=== PATIENT | female | born 1950 | race Caucasian/White ===

== ENCOUNTER → 2017-02-13 | Outpatient (CLI) | payer OTHER ==
[~2017-02-13] MED LIST: ASPEC81 PO; FRRS300 PO; GLC500 PO; LISI20TA55 PO; MCR5 PO; METO25TA56 PO
[2017-02-13 12:44] LABS: ESTIMATED AVERAGE GLUCOSE 186 mg/dl; HA1C FLAG Normal (Normal)
[2017-02-13 12:55] LABS: ALT/SGPT 27 U/L (12-78); BLOOD UREA NITROGEN 26 mg/dl (7-18); BUN/CREATININE RATIO 21.8 (10-20); CARBON DIOXIDE 28 mmol/L (21-32); CHLORIDE 102 mmol/L (98-107); CHOLESTEROL 139 mg/dl (0-200); GLUCOSE 187 mg/dl (70-99); POTASSIUM 3.9 mmol/L (3.5-5.1); SODIUM 138 mmol/L (136-145)
[2017-02-13 12:58] LABS: ALB/GLOB RATIO 1.1 (0.9-2); ALKALINE PHOSPHATASE 59 U/L (45-117); AST/SGOT 18 U/L (15-37); CALCIUM 9.4 mg/dl (8.5-10.1); HDL CHOLESTEROL 47 mg/dl; LDL CHOLESTEROL CALCULATED 57 mg/dl; TRIGLYCERIDES 176 mg/dl (0-150); VERY LOW DENSITY LIPOPROT CALC 35 mg/dl
== END ==
LOC: C.LABPVFM 07:35
PROVIDERS: ATTEND Nurse Practitioner
DX: I10 Essential (primary) hypertension (principal); E11.65 Type 2 diabetes mellitus with hyperglycemia; E78.5 Hyperlipidemia, unspecified

== ENCOUNTER 2017-09-02 15:38 | Inpatient (IN) | payer OTHER ==
[~2017-09-02] VITALS: Ht 165.1 cm; Wt 77.0 kg
[2017-09-02] MEDS ORDERED: ONDANSETRON INJ 2 MG/ML 2 ML VIAL IV STA (16:20)
[2017-09-02] MEDS ORDERED: FENTANYL CITRATE INJ 50 MCG/1 ML 2 ML VIAL IV STA (16:20)
--- NOTE | 2017-09-02 16:29 | EMERGENCY ROOM VISIT NOTE ---
ED Visit Note First contact with patient: 15:51 CHIEF COMPLAINT: Right hip pain HISTORY OF PRESENT ILLNESS: This 67-year-old white female patient presents to the emergency department [facility] ambulance complaining of right hip pain after a fall while at work. 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 She states she was walking past the customer and is uncertain of the exact impact,, but recalls the customer trying to grab her arm. The patient landed on her right hip when she fell. She denies any head injury, did not hit her head, denies loss of consciousness, nausea, vomiting, or abdominal pain. She states she is only experiencing right hip pain, which is better with certain positioning. Any movement makes the pain worse, and she has not been able to bear weight since the incident occurred. The patient states the pain is radiating down the leg a little bit when she tries to move. At rest, she is experiencing a dull, achy pain, but the pain becomes very sharp with movement. The patient rates her pain 7/10. She has not taken any medication for pain. REVIEW OF SYSTEMS: A 10 system review of systems was performed with positives and pertinent negatives listed in the history of present illness. All other systems were reviewed and are negative. ALLERGIES: None MEDICATIONS: Metformin, Januvia, glyburide, aspirin PMH: Diabetes, hypertension SOCIAL HISTORY: The patient lives locally with family. She denies drug, alcohol , tobacco use. PHYSICAL EXAM: VITALS: Vitals are noted on the nurse's note and reviewed by myself. Vital signs stable. GENERAL: This is a 67-year-old white female, in no acute distress, nondiaphoretic, well-developed well-nourished. SKIN: The skin was without rashes, erythema, edema, or bruising. There is no tenting of the skin. Capillary reflex less than 2 seconds. HEAD: Normocephalic atraumatic. EARS: External auditory canals clear, tympanic membranes pearly [place] without erythema or effusion bilaterally. EYES: Pupils equal round and reactive to light and accommodation. Conjunctivae without injection, sclerae without icterus. Extraocular movements intact. NOSE: Patent, turbinates without inflammation or discharge. No sinus tenderness. MOUTH: Mucous membranes moist. Tonsils are not enlarged. Pharynx without erythema or exudate. Uvula midline. Airway patent. Tongue does not deviate. NECK: Supple without nuchal rigidity. No lymphadenopathy. No thyromegaly. Cervical spine is nontender. No JVD. HEART: Regular rate and rhythm without murmurs gallops or rubs. LUNGS: Clear to auscultation bilaterally without wheezes, rales or rhonchi. No dullness to percussion. No retractions or accessory muscle use. ABDOMEN: Positive bowel sounds x 4. Normal tympanic percussion. Soft, nontender, without masses or organomegaly. Reddy sign negative. No guarding or rebound tenderness. MUSCULOSKELETAL: There is severe tenderness on the anterior lateral right hip. No tenderness to palpation of the femur, except at the proximal end. The right leg is slightly shortened and externally rotated. The patient has significantly decreased range of motion in the right leg at the hip due to pain. No muscle atrophy, erythema, or edema noted. Full range of motion without joint tenderness in all extremities except as noted. No tenderness to palpation except as noted. The patient is unable to ambulate due to pain. Strength 5/5 throughout, but 4/5 in the right hip. NEURO: Patient was alert and oriented to person place and time. Normal sensation to light and sharp touch. Deep tendon reflexes 2+ throughout. No focal neurological deficits. RADIOLOGY: R PELVIS/UNILATERAL HIP 2-3VIEWS CLINICAL HISTORY: Right hip pain fracture. COMPARISON: None FINDINGS: There is an acute comminuted moderately displaced intertrochanteric fracture of the right femur. Lesser trochanter is displaced medially. Fracture extends to the subtrochanteric region. No additional fractures are identified on this exam. Sacroiliac joints and symphysis pubis are intact. IMPRESSION: Acute moderately displaced comminuted intertrochanteric fracture of the right femur. Electronically signed by: Arturo Parham M.D. 09/02/2017 5:52 PM Dictated Date/Time: 09/02/2017 5:50 PM CHEST ONE VIEW PORTABLE HISTORY: 67 years-old Female hip fracture acute fracture of the right hip status post fall COMPARISON: Chest radiograph 09/26/2008 TECHNIQUE: Supine AP view of the chest FINDINGS: Cardiac silhouette is mildly enlarged. No pneumothorax, pleural effusion, focal airspace consolidation or overt pulmonary edema. Linear subsegmental opacity of the right lateral midlung suggests atelectasis/scarring. Bones of the chest are grossly intact and appear mildly demineralized. Vascular calcifications are noted. IMPRESSION: No acute cardiopulmonary process. The above report was generated using voice recognition software. It may contain grammatical, syntax or spelling errors. Electronically signed by: Lucas Riley M.D. 09/02/2017 5:52 PM Dictated Date/Time: 09/02/2017 5:51 PM EMERGENCY DEPARTMENT COURSE: The patient was seen and evaluated as above. Her examination was consistent with a right hip fracture. An IV was initiated, and the patient was given an initial dose of 50 g of fentanyl and 4 mg Zofran IV. Labs were drawn. The patient did complain of the room spinning and stationary objects in motion shortly after receiving the dose of fentanyl. Her oxygen saturation did start to drop, and she was placed on oxygen via nasal cannula. X -ray did reveal a right hip fracture, so a Pride catheter was placed, labs ordered, and CXR ordered and completed. Dr. Alvarez did see and evaluate the patient at this time. I did contact [facility] hospitalist group regarding admission. I spoke with Dr. Andino, who does agree to evaluate the patient. Please see the hospitalist dictation regarding further management and care. I attest that I have personally reviewed the patient's current medication list. Blood Pressure Screening: Patient was found to have a slightly elevated blood pressure due to circumstances. I do not believe that the patient requires hypertension monitoring. DIFFERENTIAL DIAGNOSIS: Fracture, contusion, head injury, concussion, and others DIAGNOSIS: right hip fracture, Worker's Compensation injury Current/Historical Medications Scheduled Amlodipine (Norvasc), 10 MG PO DAILY Aspirin (Aspirin 81), 81 MG PO DAILY Clopidogrel (Plavix), 75 MG PO DAILY Diclofenac (Voltaren), 75 MG PO BID Glyburide (Glyburide), 5 MG PO BID Lisinopril/Hctz (Prinzide 20-25MG), 1 TAB PO DAILY Metformin Hcl (Fortamet), 1,000 MG PO BID Metoprolol Tartrate (Lopressor) (Lopressor), 150 MG PO TID Simvastatin (Zocor), 20 MG PO QPM Sitagliptin (Januvia), 100 MG PO HS Allergies Coded Allergies: No Known Allergies (Verified , 12/13/17) Vital Signs Date Time Temp Pulse Resp B/P (MAP) Pulse Ox O2 Delivery O2 Flow Rate FiO2 09/02/17 18:44 73 18 141/88 96 Nasal Cannula 2.0 09/02/17 17:19 94 Nasal Cannula 2.0 09/02/17 16:46 75 09/02/17 15:43 36.8 74 18 148/83 95 Room Air Laboratory Results 09/02/17 17:00 Red Blood Count 4.17, Mean Corpuscular Volume 92.3, Mean Corpuscular Hemoglobin 30.9, Mean Corpuscular Hemoglobin Concent 33.5, Mean Platelet Volume 9.7, Neutrophils (%) (Auto) 71.9, Lymphocytes (%) (Auto) 16.6, Monocytes (%) (Auto) 7.1, Eosinophils (%) (Auto) 3.9, Basophils (%) (Auto) 0.1, Neutrophils # (Auto) 5.57, Lymphocytes # (Auto) 1.29, Monocytes # (Auto) 0.55, Eosinophils # (Auto) 0.30, Basophils # (Auto) 0.01 09/02/17 17:00 Test 09/02/17 17:00 09/02/17 18:30 White Blood Count 7.75 K/uL (4.8-10.8) Red Blood Count 4.17 M/uL (4.2-5.4) Hemoglobin 12.9 g/dL (12.0-16.0) Hematocrit 38.5 % (37-47) Mean Corpuscular Volume 92.3 fL (80-100) Mean Corpuscular Hemoglobin 30.9 pg (25-34) Mean Corpuscular Hemoglobin Concent 33.5 g/dl (32-36) Platelet Count 199 K/uL (130-400) Mean Platelet Volume 9.7 fL (7.4-10.4) Neutrophils (%) (Auto) 71.9 % Lymphocytes (%) (Auto) 16.6 % Monocytes (%) (Auto) 7.1 % Eosinophils (%) (Auto) 3.9 % Basophils (%) (Auto) 0.1 % Neutrophils # (Auto) 5.57 K/uL (1.4-6.5) Lymphocytes # (Auto) 1.29 K/uL (1.2-3.4) Monocytes # (Auto) 0.55 K/uL (0.11-0.59) Eosinophils # (Auto) 0.30 K/uL (0-0.5) Basophils # (Auto) 0.01 K/uL (0-0.2) RDW Standard Deviation 44.9 fL (36.4-46.3) RDW Coefficient of Variation 13.4 % (11.5-14.5) Immature Granulocyte % (Auto) 0.4 % Immature Granulocyte # (Auto) 0.03 K/uL (0.00-0.02) Prothrombin Time 9.6 SECONDS (9.0-12.0) Prothromb Time International Ratio 0.9 (0.9-1.1) Activated Partial Thromboplast Time 23.5 SECONDS (21.0-31.0) Partial Thromboplastin Ratio 0.9 Anion Gap 5.0 mmol/L (3-11) Estimated GFR () 55.8 Estimated GFR (Non- 48.2 BUN/Creatinine Ratio 27.7 (10-20) Calcium Level 9.5 mg/dl (8.5-10.1) Medications Administered Medications (Trade) Dose Ordered Sig/Beverly Route Start Time Stop Time Status Last Admin Dose Admin Fentanyl Citrate (Fentanyl Inj) 50 mcg NOW STAT IV 09/02/17 16:20 09/02/17 16:21 DC 09/02/17 17:00 50 MCG Ondansetron HCl (Zofran Inj) 4 mg NOW STAT IV 09/02/17 16:20 09/02/17 16:21 DC 09/02/17 16:59 4 MG Departure Information Impression Primary Impression: Closed right hip fracture Additional Impression: Encounter related to worker's compensation claim Dispostion Admitted as an inpatient Condition FAIR Referrals Armaan Mo M.D. (PCP) Patient Instructions [facility] Problem Qualifiers Primary Impression: Closed right hip fracture Encounter type: initial encounter Qualified Codes: S72.001A - Fracture of unspecified part of neck of right femur, initial encounter for closed fracture
[2017-09-02] MEDS ORDERED: MCR5 PO (16:35)
[2017-09-02] MEDS ORDERED: SITA25TA PO (16:35)
[2017-09-02] MEDS ORDERED: ASPI-435 PO (16:35)
[2017-09-02] MEDS ORDERED: GLC500 PO (16:35)
[2017-09-02] MEDS ORDERED: [UNRECOGNIZED DRUG - CODE] PO (16:39)
[2017-09-02] MEDS ORDERED: CLOP1TAB15 PO (16:39)
[2017-09-02] MEDS ORDERED: AMLO-114 PO (16:39)
[2017-09-02] MEDS ORDERED: SIMV20TA2 PO (16:39)
[2017-09-02] MEDS ORDERED: SITA1TAB27 PO (16:39)
[2017-09-02] MEDS ORDERED: METO100T14 PO (16:39)
[2017-09-02] MEDS ORDERED: DICL-201 PO (16:40)
--- NOTE | 2017-09-02 17:53 | DIAGNOSTIC IMAGING REPORT ---
R PELVIS/UNILATERAL HIP 2-3VIEWS CLINICAL HISTORY: Right hip pain fracture. COMPARISON: None FINDINGS: There is an acute comminuted moderately displaced intertrochanteric fracture of the right femur. Lesser trochanter is displaced medially. Fracture extends to the subtrochanteric region. No additional fractures are identified on this exam. Sacroiliac joints and symphysis pubis are intact. IMPRESSION: Acute moderately displaced comminuted intertrochanteric fracture of the right femur. Electronically signed by: Arturo Parham M.D. 09/02/2017 5:52 PM Dictated Date/Time: 09/02/2017 5:50 PM
--- NOTE | 2017-09-02 17:54 | DIAGNOSTIC IMAGING REPORT ---
CHEST ONE VIEW PORTABLE HISTORY: 67 years-old Female hip fracture acute fracture of the right hip status post fall COMPARISON: Chest radiograph 09/26/2008 TECHNIQUE: Supine AP view of the chest FINDINGS: Cardiac silhouette is mildly enlarged. No pneumothorax, pleural effusion, focal airspace consolidation or overt pulmonary edema. Linear subsegmental opacity of the right lateral midlung suggests atelectasis/scarring. Bones of the chest are grossly intact and appear mildly demineralized. Vascular calcifications are noted. IMPRESSION: No acute cardiopulmonary process. The above report was generated using voice recognition software. It may contain grammatical, syntax or spelling errors. Electronically signed by: Lucas Riley M.D. 09/02/2017 5:52 PM Dictated Date/Time: 09/02/2017 5:51 PM
[2017-09-02 18:01] LABS: BASO % 0.1 %; BASO ABS # 0.01 K/uL (0-0.2); COMPLETE YES; EOS % 3.9 %; HEMATOCRIT 38.5 % (37-47); IG% 0.4 %; LYMPH % 16.6 %; LYMPH ABS # 1.29 K/uL (1.2-3.4); MEAN CELL VOLUME 92.3 fL (80-100); MEAN CORPUSCULAR HEMOGLOBIN 30.9 pg (25-34); MEAN CORPUSCULAR HGB CONC 33.5 g/dl (32-36); MEAN PLATELET VOLUME 9.7 fL (7.4-10.4); MONO % 7.1 %; NEUT % 71.9 %; PLATELET COUNT 199 K/uL (130-400); RED BLOOD COUNT 4.17 M/uL (4.2-5.4); WHITE BLOOD COUNT 7.75 K/uL (4.8-10.8)
[2017-09-02 18:05] LABS: INR 0.9 (0.9-1.1); PARTIAL THROMBOPLASTIN RATIO 0.9; PROTHROMBIN TIME (PATIENT) 9.6 SECONDS (9.0-12.0)
[2017-09-02 18:17] LABS: BLOOD UREA NITROGEN 32 mg/dl (7-18); BUN/CREATININE RATIO 27.7 (10-20); CALCIUM 9.5 mg/dl (8.5-10.1); CARBON DIOXIDE 26 mmol/L (21-32); CHLORIDE 102 mmol/L (98-107); CREATININE 1.17 mg/dl (0.60-1.20); GLUCOSE 153 mg/dl (70-99); POTASSIUM 4.2 mmol/L (3.5-5.1); SODIUM 133 mmol/L (136-145)
[2017-09-02 18:54] LABS: URINE APPEARANCE CLEAR (CLEAR); URINE BILIRUBIN NEG (NEG); URINE COLOR YELLOW; URINE NITRITE NEG (NEG); URINE SPECIFIC GRAVITY 1.014 (1.000-1.030); UROBILINOGEN NEG (NEG); ZZURINE CULT IF INDIC CATH NO
[2017-09-02 18:58] LABS: MANUAL MICROSCOPIC REQUIRED? NO; REVIEW REQ? NO
--- NOTE | 2017-09-02 19:03 | EMERGENCY ROOM VISIT NOTE ---
ED Visit Note First contact with patient: 15:51 I have personally evaluated this patient examined her and reviewed the pertinent labs and data. I have discussed the case with Gabby Moran, the physician certified medical assistant and agree with the plan. Please refer to the PA note. This patient suffered mechanical fall when she ran into somebody at work and fell. She injured her right hip . On my exam, it is shortened and very painful with any movement. She denies any other complaints. Her x-ray does show an intertrochanteric hip fracture and she will need to be admitted for orthopedic consultation and operative repair. We have consulted the [facility] hospitalist group as she is followed by the [facility].
--- NOTE | 2017-09-02 19:11 | History and Physical ---
History & Physical Date & Time of Service: Sep 02, 2017 at 19:10 Chief Complaint: Fall, R Hip Pain Primary Care Physician: Armaan oM M.D. History of Present Illness Source: patient 67 y/o F c/o R hip pain. Pt works at [employer] and was at work earlier today when a customer rain into her causing her to fall. She landed on her R side and started having pain immediately. She did not hit her head. She cannot bear weight on the R now. Prior to this, she had no issues with walking. She walks daily for her job at [employer] and never has any issues with that. She can do several flights of stairs without becoming SOB. Pt is frustrated at present, but otherwise no new issues. She has minimal pain if her R LE is not being manipulated. Pt denies fever, SOB, chest pain, abd pain, n/v/c/d, LE swelling, lightheadedness, LOC. Pt has a hx of CVA in 2009. She takes daily aspirin/plavix. Her last dosing was Thursday. Past Medical/Surgical History DM HTN CVA 2009 Family History Adopted Social History Smoking Status: Never Smoker Alcohol Use: none Drug Use: none Housing status: other Immunizations History of Influenza Vaccine: Unknown History of Tetanus Vaccine?: Unknown History of Pneumococcal: Yes Pneumococcal Date: Apr 27, 2010 History of Hepatitis B Vaccine: Unknown Allergies Coded Allergies: No Known Allergies (Verified , 09/02/17) Home Medications Scheduled Amlodipine (Norvasc), 10 MG PO DAILY Aspirin (Aspirin 81), 81 MG PO DAILY Clopidogrel (Plavix), 75 MG PO DAILY Diclofenac (Voltaren), 75 MG PO BID Glyburide (Glyburide), 5 MG PO BID Lisinopril/Hctz (Prinzide 20-25MG), 1 TAB PO DAILY Metformin Hcl (Fortamet), 1,000 MG PO BID Metoprolol Tartrate (Lopressor) (Lopressor), 150 MG PO TID Simvastatin (Zocor), 20 MG PO QPM Sitagliptin (Januvia), 100 MG PO HS Review of Systems Pertinent positives and negatives reviewed in HPI--all others negative Physical Exam Vital Signs Date Time Temp Pulse Resp B/P (MAP) Pulse Ox O2 Delivery O2 Flow Rate FiO2 09/02/17 18:44 73 18 141/88 96 Nasal Cannula 2.0 09/02/17 17:19 94 Nasal Cannula 2.0 09/02/17 16:46 75 09/02/17 15:43 36.8 74 18 148/83 95 Room Air General Appearance: WD/WN, no apparent distress Head: normocephalic, atraumatic Eyes: EOMI, sclerae normal Respiratory/Chest: normal breath sounds, no respiratory distress Cardiovascular: regular rate, rhythm, no edema Abdomen/GI: non tender, soft Extremities/Musculoskelatal: no calf tenderness, no pedal edema Neurologic/Psych: alert, normal mood/affect, oriented x 3 Skin: normal color, warm/dry Diagnostics Laboratory Results Results Past 24 Hours Test 09/02/17 17:00 09/02/17 18:30 Range/Units White Blood Count 7.75 4.8-10.8 K/uL Red Blood Count 4.17 4.2-5.4 M/uL Hemoglobin 12.9 12.0-16.0 g/dL Hematocrit 38.5 37-47 % Mean Corpuscular Volume 92.3 80-100 fL Mean Corpuscular Hemoglobin 30.9 25-34 pg Mean Corpuscular Hemoglobin Concent 33.5 32-36 g/dl Platelet Count 199 130-400 K/uL Mean Platelet Volume 9.7 7.4-10.4 fL Neutrophils (%) (Auto) 71.9 % Lymphocytes (%) (Auto) 16.6 % Monocytes (%) (Auto) 7.1 % Eosinophils (%) (Auto) 3.9 % Basophils (%) (Auto) 0.1 % Neutrophils # (Auto) 5.57 1.4-6.5 K/uL Lymphocytes # (Auto) 1.29 1.2-3.4 K/uL Monocytes # (Auto) 0.55 0.11-0.59 K/uL Eosinophils # (Auto) 0.30 0-0.5 K/uL Basophils # (Auto) 0.01 0-0.2 K/uL RDW Standard Deviation 44.9 36.4-46.3 fL RDW Coefficient of Variation 13.4 11.5-14.5 % Immature Granulocyte % (Auto) 0.4 % Immature Granulocyte # (Auto) 0.03 0.00-0.02 K/uL Prothrombin Time 9.6 9.0-12.0 SECONDS Prothromb Time International Ratio 0.9 0.9-1.1 Activated Partial Thromboplast Time 23.5 21.0-31.0 SECONDS Partial Thromboplastin Ratio 0.9 Sodium Level 133 136-145 mmol/L Potassium Level 4.2 3.5-5.1 mmol/L Chloride Level 102 98-107 mmol/L Carbon Dioxide Level 26 21-32 mmol/L Anion Gap 5.0 3-11 mmol/L Blood Urea Nitrogen 32 7-18 mg/dl Creatinine 1.17 0.60-1.20 mg/dl Estimated GFR () 55.8 Estimated GFR (Non- 48.2 BUN/Creatinine Ratio 27.7 10-20 Random Glucose 153 70-99 mg/dl Calcium Level 9.5 8.5-10.1 mg/dl Urine Color YELLOW Urine Appearance CLEAR CLEAR Urine pH 8.0 4.5-7.5 Urine Specific [place] 1.014 1.000-1.030 Urine Protein NEG NEG Urine Glucose (UA) NEG NEG Urine Ketones NEG NEG Urine Occult Blood NEG NEG Urine Nitrite NEG NEG Urine Bilirubin NEG NEG Urine Urobilinogen NEG NEG Urine Leukocyte Esterase NEG NEG Diagnostic Radiology CXR neg LE XR show R hip fracture Normal EKG Impression Assessment and Plan 67 y/o F who was admitted on 09/02 with R hip fracture s/p mechanical fall at work. R hip fracture: s/p mechanical fall As per ortho, c/s pending NPO after midnight PT/OT HTN: stable, continue home meds DM: on PO generally, will hold and use SSI until taking reliable PO post-op A1c pending CVA: hx in 2009 without deficits On asp/plavix, last dose was PM 12 Will hold Other: Full code Reg diet today, NPO after midnight DVT proph as per ortho Level of Care Med/Surg Resuscitation Status FULL RESUSCITATION VTE Prophylaxis VTE Risk Assessment Done? Y/N: Yes Risk Level: Low
[2017-09-02] MEDS ORDERED: ONDANSETRON INJ 2 MG/ML 2 ML VIAL IV PRN (19:15)
[2017-09-02] MEDS ORDERED: MAGNESIUM HYDROXIDE SUSP 30 ML UDC PO PRN (19:15)
[2017-09-02] MEDS ORDERED: GLUCOSE 40% GEL 15 GM TUBE PO PRN (19:15)
[2017-09-02] MEDS ORDERED: GLUCAGON FOR INJ 1 MG VIAL SQ PRN (19:15)
[2017-09-02] MEDS ORDERED: DEXTROSE 50% 50 ML SYR IV PRN (19:15)
[2017-09-02] MEDS ORDERED: MoRPHine SULFATE 2 MG/ML CARP IM PRN (19:15)
[2017-09-02] MEDS ORDERED: GLUCOSE 10 TABS/TUBE PO PRN (19:15)
[2017-09-02 20:00] VITALS: BP 147/87; PULSE 70; TEMP 36.8; O2SAT 99
[2017-09-02] MEDS: INSULIN ASPART 100 UNITS/ML 3 ML PEN SC SCH (21:47)
[2017-09-02 21:50] VITALS: BP 157/95; PULSE 67
[2017-09-02] MEDS: DICLOFENAC SOD EC 75 MG TABCR PO SCH (21:51)
[2017-09-02] MEDS: METOPROLOL TARTRATE 50 MG TAB PO SCH (21:51)
[2017-09-02] MEDS: SIMVASTATIN 20 MG TAB PO SCH (21:51)
[2017-09-02] MEDS ORDERED: MoRPHine SULFATE 2 MG/ML CARP IV PRN (22:45)
[2017-09-02 23:10] VITALS: BP 144/80; PULSE 66; TEMP 36.6; O2SAT 98
[2017-09-03] VITALS (7 sets, daily range): BP systolic 108–150; BP diastolic 70–79; PULSE 57–65; TEMP 36.4–37; O2SAT 98; Ht 165.1 cm; Wt 77.0 kg
[2017-09-03 07:34] LABS: ESTIMATED AVERAGE GLUCOSE 183 mg/dl; HA1C FLAG Normal (Normal)
[2017-09-03] MEDS: METOPROLOL TARTRATE 50 MG TAB PO SCH ×3 (07:57→21:08)
[2017-09-03] MEDS: DICLOFENAC SOD EC 75 MG TABCR PO SCH ×2 (07:57→21:08)
[2017-09-03] MEDS: LISINOPRIL/HCTZ 20/25MG TAB PO SCH (07:57)
[2017-09-03] MEDS: AMLODIPINE BESYLATE 5 MG TAB PO SCH (07:57)
--- NOTE | 2017-09-03 08:39 | ORTHOPEDIC CONSULTATION ---
DATE OF CONSULTATION: 09/03/2017 CHIEF COMPLAINT: Right hip pain. 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 Apparently she ran into the person and said that they were bigger than she was. She had no preexisting hip pain. She had acute onset of pain and could not walk afterwards. Brought to the Emergency Room where x-rays revealed a hip fracture and she is admitted by the medicine service. No other injuries. Denies any head injury, no loss of consciousness, no neck pain. No history of hip problems in the past. PAST MEDICAL HISTORY: 1. Significant for diabetes, followed by Dr. Mo. 2. History of a CVA on aspirin and Plavix. 3. Hypertension. The reminder of the past medical history is per the admission H&P. OBJECTIVE: VITAL SIGNS: Temperature is 36.9. Vital signs stable. GENERAL: Reveals a pleasant elderly female. She is lying in bed, looks reasonably comfortable. Really not have much pain now. EXTREMITIES: General musculoskeletal exam reveals painless range of motion of her cervical, thoracic and lumbar spine. She has full painless range of motion of both arms, elbows, shoulders and wrists and left lower extremities. Examination of the right leg reveals some mild swelling. It is significantly shortened and rotated externally. She can dorsiflex and plantarflex her foot appropriately. She has pain with any type of hip motion at all. She is neurologically intact. X-RAYS: X-rays of the right hip reviewed. It shows a comminuted intertrochanteric hip fracture of the right hip. No significant hip arthritis. No underlying signs of bone disease. ASSESSMENT: A 67-year-old white female diabetic with right displaced intertrochanteric hip fracture with subtrochanteric extension. PLAN: She has been admitted by the hospitalist service. She looks medically optimized. We will keep her n.p.o. and try and fix this hip later on. Plan will be an IM nail. The risks and benefits of this procedure were explained to the patient including but not limited to DVT, PE, , infection, neurological injury, vascular injury, bleeding problem, pain, nonunion, malunion, need for further surgery in the future, symptomatic hardware, need for blood transfusion, etc. The patient understands and desires to proceed. Informed consent was obtained. In the meantime, we will plan on DVT prophylaxis including thigh-high TEDs and SCDs. We will hold her Plavix but she will likely need a general anesthetic.
[2017-09-03] MEDS: INSULIN ASPART 100 UNITS/ML 3 ML PEN SC SCH ×4 (08:59→21:10)
--- NOTE | 2017-09-03 14:27 | Progress Note ---
Subjective Date of Service: Sep 03, 2017. Subjective Pt evaluation today including: conversation w/ patient, physical exam, chart review, lab review, review of studies, review of inpatient medication list Reports pain at hip only when moving Resting comfortably in bed Currently NPO Problem List Medical Problems: (1) Closed right hip fracture Status: Acute (2) Encounter related to worker's compensation claim Status: Acute Review of Systems Constitutional: No fever, No chills, No sweats, No weight loss ENT: No hearing loss, No unusual epistaxis, No nasal symptoms, No sore throat Respiratory: No cough, No sputum, No wheezing, No shortness of breath Cardiac: No chest pain, No orthopnea, No PND, No edema Abdomen: No pain, No nausea, No vomiting, No diarrhea, No constipation Musculoskeletal: + joint pain (hip pain), No muscle pain, No swelling, No calf pain Female : No dysuria, No urinary frequency, No hematuria, No incontinence Neurologic: No memory loss, No paralysis, No weakness, No numbness/tingling Psychiatric: No depression symptoms, No anhedonism, No anxiety, No insomnia Endo: No fatigue, No excessive thirst Skin: No rash, No itch Objective Vital Signs Date Time Temp Pulse Resp B/P (MAP) Pulse Ox O2 Delivery O2 Flow Rate FiO2 09/03/17 08:10 Nasal Cannula 2.0 09/03/17 07:25 36.9 63 16 150/79 (102) 98 Room Air 09/02/17 23:45 Nasal Cannula 2.0 09/02/17 23:10 36.6 66 16 144/80 (101) 98 Nasal Cannula 09/02/17 21:50 67 157/95 (115) 09/02/17 20:00 36.8 70 16 147/87 99 Nasal Cannula 2.0 09/02/17 19:19 74 16 141/88 96 09/02/17 18:44 73 18 141/88 96 Nasal Cannula 2.0 09/02/17 17:19 94 Nasal Cannula 2.0 09/02/17 16:46 75 09/02/17 15:43 36.8 74 18 148/83 95 Room Air Physical Exam General Appearance: WD/WN, no apparent distress Eyes: normal inspection, PERRL, EOMI, sclerae normal Neck: supple, no adenopathy, thyroid normal, no JVD Respiratory/Chest: chest non-tender, lungs clear, normal breath sounds, no respiratory distress Cardiovascular: regular rate, rhythm, no edema, no gallop, no JVD Abdomen: normal bowel sounds, non tender, soft, no organomegaly Extremities: normal range of motion, non-tender, normal inspection, no pedal edema Neurologic/Psychiatric: no motor/sensory deficits, alert, normal mood/affect, oriented x 3 Skin: normal color, warm/dry, no rash Lymphatic: no adenopathy Laboratory Results Last 24 Hours Test 09/02/17 17:00 09/02/17 18:30 09/02/17 20:58 09/03/17 06:22 White Blood Count 7.75 K/uL Red Blood Count 4.17 M/uL Hemoglobin 12.9 g/dL Hematocrit 38.5 % Mean Corpuscular Volume 92.3 fL Mean Corpuscular Hemoglobin 30.9 pg Mean Corpuscular Hemoglobin Concent 33.5 g/dl Platelet Count 199 K/uL Mean Platelet Volume 9.7 fL Neutrophils (%) (Auto) 71.9 % Lymphocytes (%) (Auto) 16.6 % Monocytes (%) (Auto) 7.1 % Eosinophils (%) (Auto) 3.9 % Basophils (%) (Auto) 0.1 % Neutrophils # (Auto) 5.57 K/uL Lymphocytes # (Auto) 1.29 K/uL Monocytes # (Auto) 0.55 K/uL Eosinophils # (Auto) 0.30 K/uL Basophils # (Auto) 0.01 K/uL RDW Standard Deviation 44.9 fL RDW Coefficient of Variation 13.4 % Immature Granulocyte % (Auto) 0.4 % Immature Granulocyte # (Auto) 0.03 K/uL Prothrombin Time 9.6 SECONDS Prothromb Time International Ratio 0.9 Activated Partial Thromboplast Time 23.5 SECONDS Partial Thromboplastin Ratio 0.9 Sodium Level 133 mmol/L Potassium Level 4.2 mmol/L Chloride Level 102 mmol/L Carbon Dioxide Level 26 mmol/L Anion Gap 5.0 mmol/L Blood Urea Nitrogen 32 mg/dl Creatinine 1.17 mg/dl Estimated GFR () 55.8 Estimated GFR (Non- 48.2 BUN/Creatinine Ratio 27.7 Random Glucose 153 mg/dl Calcium Level 9.5 mg/dl Urine Color YELLOW Urine Appearance CLEAR Urine pH 8.0 Urine Specific [place] 1.014 Urine Protein NEG Urine Glucose (UA) NEG Urine Ketones NEG Urine Occult Blood NEG Urine Nitrite NEG Urine Bilirubin NEG Urine Urobilinogen NEG Urine Leukocyte Esterase NEG Bedside Glucose 164 mg/dl Estimated Average Glucose 183 mg/dl Hemoglobin A1c 8.0 % Test 09/03/17 12:08 Bedside Glucose 153 mg/dl Assessment and Plan 67 y/o F who was admitted on 09/02 with R hip fracture s/p mechanical fall at work. R hip fracture: s/p mechanical fall Keep NPO, Per ortho, repair likely by IM nail later today Cont to hold plavix HTN: stable, continue home meds DM: on PO generally, will hold and use SSI until taking reliable PO post-op A1c 8 CVA: hx in 2009 without deficits On asp/plavix, last dose was PM 12 Will hold Other: Full code
[2017-09-03] MEDS ORDERED: BUPIVACAINE/EPINEPHRINE 0.5% MPF 1:200,000 30 ML VIAL ONE (15:30)
[2017-09-03] MEDS ORDERED: CEFAZOLIN SOD 2000MG/10 ML IV PUSH IV ONE (15:44)
[2017-09-03] MEDS ORDERED: NURSING VERBAL MED ORDER ONE ×2 (15:45→23:00)
[2017-09-03] MEDS ORDERED: NEOSTIGMINE METHYLSULFATE 5 MG/5 ML SYR ONE (16:57)
[2017-09-03] MEDS ORDERED: DEXAMETHASONE SOD INJ 4 MG/ML VIAL ONE (16:57)
[2017-09-03] MEDS ORDERED: ONDANSETRON INJ 2 MG/ML 2 ML VIAL ONE (16:57)
[2017-09-03] MEDS ORDERED: GLYCOPYRROLATE INJ 0.2 MG/ML VIAL ONE ×2 (16:57→17:19)
[2017-09-03] MEDS ORDERED: FENTANYL CITRATE INJ 50 MCG/1 ML 2 ML VIAL ONE (16:57)
[2017-09-03] MEDS ORDERED: LIDOCAINE HCL 2% 2 ML VIAL (20MG/ML) ONE (16:57)
[2017-09-03] MEDS ORDERED: PROPOFOL IV EMULSION 10 MG/ML 20 ML VIAL IV ONE (16:57)
[2017-09-03] MEDS ORDERED: EpHEDrine SULFATE 50MG/5ML SYR ONE (17:19)
[2017-09-03] MEDS ORDERED: FLUMAZENIL 0.1 MG/1 ML 10 ML VIAL IV PRN (18:00)
[2017-09-03] MEDS ORDERED: PHENYLEPHRINE 100MCG/ML 5ML SYR IV PRN (18:00)
[2017-09-03] MEDS ORDERED: HYDROmorphone INJ 2 MG/ML SYR/VIAL IV PRN (18:00)
[2017-09-03] MEDS ORDERED: FENTANYL CITRATE INJ 50 MCG/1 ML 2 ML VIAL IV PRN (18:00)
[2017-09-03] MEDS ORDERED: ONDANSETRON INJ 2 MG/ML 2 ML VIAL IV PRN (18:00)
[2017-09-03] MEDS ORDERED: EpHEDrine SULFATE INJ 50 MG/ML AMP IV PRN (18:00)
[2017-09-03] MEDS ORDERED: MEPERIDINE HCL 25 MG/ML CARP IV PRN (18:00)
[2017-09-03] MEDS ORDERED: ATROPINE SULFATE 0.1 MG/ML 5ML SYR IV PRN (18:00)
[2017-09-03] MEDS ORDERED: LABETALOL HCL IV 5 MG/ML 20ML IV PRN (18:00)
[2017-09-03] MEDS ORDERED: NALOXONE HCL 0.4 MG/1 ML VIAL/CARP IV PRN (18:00)
--- NOTE | 2017-09-03 18:19 | DIAGNOSTIC IMAGING REPORT ---
R HIP OR FILMS HISTORY: 67 years-old Female RT TROCH NAIL post placement of a right-sided intertrochanteric nail. Acute right hip intertrochanteric fracture COMPARISON: Pelvis and right hip radiographs 09/02/2017 TECHNIQUE: 4 spot fluoroscopic images of the right hip were obtained utilizing 84.5 seconds fluoroscopy time. FINDINGS: There has been interval placement of an intratrochanteric nail with medullary helga of the right femur fixating the previously noted intertrochanteric fracture. There is satisfactory alignment. Minimal separation of the fracture fragments again noted. Distal intramedullary helga is fixated by cannulated screw of the distal femoral shaft which appears intact. Expected postsurgical soft tissue swelling and deep tissue air. Peripheral vascular disease. IMPRESSION: Status post placement of an intratrochanteric nail fixating an acute intertrochanteric fracture with satisfactory alignment. The above report was generated using voice recognition software. It may contain grammatical, syntax or spelling errors. Electronically signed by: Lucas Riley M.D. 09/03/2017 6:18 PM Dictated Date/Time: 09/03/2017 6:14 PM
--- NOTE | 2017-09-03 18:24 | [facility] Post Operative Brief Note ---
Immediate Operative Summary Operative Date Sep 03, 2017. Pre-Operative Diagnosis Right Intertrochanteric hip fracture Post-Operative Diagnosis Right Intertrochanteric hip fracture Procedure(s) Performed Intramedullary Froilan Right Intertrochanteric fracture Surgeon Dr. Love Spa Coordinator Surgeon(s) Edmond Tam Estimated Blood Loss 100 ML Findings Right Intertrochanteric Hip Fracture Fluids (cc crystalloids) 700 cc Specimens none per surgeon Drains None Anesthesia General Complication(s) None Disposition Recovery Room / PACU
[2017-09-03] MEDS ORDERED: BISACODYL 10 MG SUPP PR PRN (18:30)
[2017-09-03] MEDS ORDERED: MAGNESIUM HYDROXIDE SUSP 30 ML UDC PO PRN (18:30)
--- NOTE | 2017-09-03 18:59 | Anesthesiology Progress Note ---
Anesthesia Post Op Note Date & Time Sep 03, 2017 at 18:59 Vital Signs Pain Intensity: 0 Vital Signs Past 12 Hours Date Time Temp Pulse Resp B/P (MAP) Pulse Ox O2 Delivery O2 Flow Rate FiO2 09/03/17 18:55 53 16 131/74 98 Nasal Cannula 2 09/03/17 18:45 58 18 121/71 99 Oxymask 10 09/03/17 18:35 64 26 110/91 99 Oxymask 10 09/03/17 18:26 36.0 66 16 128/90 100 Oxymask 10 09/03/17 15:33 37 65 16 154/87 (109) 95 Room Air 09/03/17 08:10 Nasal Cannula 2.0 09/03/17 07:25 36.9 63 16 150/79 (102) 98 Room Air Notes Mental Status: alert / awake / arousable, participated in evaluation Pt Amnestic to Procedure: Yes Nausea / Vomiting: adequately controlled Pain: adequately controlled Airway Patency, RR, SpO2: stable & adequate BP & HR: stable & adequate Hydration State: stable & adequate Anesthetic Complications: no major complications apparent
--- NOTE | 2017-09-03 19:25 | OPERATIVE REPORT ---
DATE OF OPERATION: 09/03/2017 SURGEON: Francisco Love MD CHUCKING MACHINE SET UP OPERATOR TOOL: DESTINI Sierra. PREOPERATIVE DIAGNOSIS: Right displaced intertrochanteric hip fracture with subtrochanteric extension. POSTOPERATIVE DIAGNOSIS: Same. PROCEDURE PERFORMED: Right cephalomedullary nailing of right displaced intertrochanteric hip fracture. COMPLICATIONS: None. ESTIMATED BLOOD LOSS: 100 mL. FLUID REPLACEMENT: 1700 mL crystalloid fluid replacement. ANESTHESIA: General. SPECIMENS: None. 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 She apparently had a collision with a customer accidentally. She says she kind of lost the rand. She had acute onset of hip pain. She had no preexisting hip problems. She was brought to Emergency Room and x-rays showed right intertrochanteric hip fracture. The patient was admitted to the hospital by the medicine service and medically optimized and indicated for surgical fixation. OPERATIVE IMPLANTS: Operative implants consisted of: 1. A Synthes right 360 mm x 11 mm long trochanteric nail. 2. A 90 mm helical blade. 3. A 5 x 45 mm distal interlocking screw. OPERATIVE PROCEDURE: The patient taken to the operating room, identified and placed on the operating table in supine position. All contact areas were appropriately padded. IV antibiotics were provided by anesthesia team. A general anesthetic was implemented by the anesthesia team as this patient has been on Plavix. The patient was then placed on the fracture table. The right leg was placed in boot traction and the left leg was placed in a well leg cardona. I then applied some longitudinal traction to the leg and internally rotated the foot slightly. X-ray was brought in. The fracture was comminuted but anatomically aligned. The right hip and leg area were then prepped and draped in the usual sterile fashion. A curvilinear incision was made just proximal to the tip of the greater trochanter. Sharp dissection was carried out through the subcutaneous tissue down to the level of gluteal fascia. The gluteal fascia was incised longitudinally in line with the skin incision. A guidewire was then placed just lateral to the tip of the trochanter and in line with the IM canal in both the AP and lateral planes. This was overdrilled with a 17 mm reamer. This guidewire was removed and exchanged for a ball tipped guidewire. A ball tipped guidewire was placed down the IM canal. The nail length was measured and a 360 mm nail was selected. A 12.5 mm reamer was then placed over the guidewire and the canal was reamed. A right 360 mm x 11 mm long trochanteric nail was selected. It was advanced down the IM canal and tacked into place. The lateral aiming arm was attached. A stab incision was made and the lateral aiming arm was advanced to the lateral aspect of the femur. A guidewire was placed in the area of the center of the femoral head and neck in both the AP and lateral planes. Once this was verified, this was measured and a 90 mm helical blade was selected. The cortical drill was used to breach the cortex and a triple reamer was set at 90. The guidewire was overreamed with a 90 mm triple reamer. A 90 mm helical blade was then selected. This was then impacted in position. This did distract the fracture site slightly, so I did tighten the set screw proximally and then compressed the fracture. The proximal aiming arm was then removed and some proximal images were obtained. Hardware was appropriately positioned and anatomically aligned. Attention was then drawn toward distal interlocking. Distal interlocking was performed using the perfect paimiut technique. X-rays were brought in. A perfect paimiut lateral x-ray was obtained of the distal interlocking hole. A stab incision was then made and the 4.0 mm drill bit was used to create the hole. The length of the screw was measured and a 44 mm screw was selected and placed through the distal portion of the interlocking hole to allow some compression of the fracture. This position was verified fluoroscopically and attention was then drawn toward closing. The wound was irrigated with copious amounts of normal saline. I did inject locally with 30 mL of 0.5% Marcaine with epinephrine. The gluteal fascia was then closed with #1 Vicryl suture in a [id number] fashion. The subcutaneous tissues were then closed with 2 layers with a deep layer of #1 Vicryl suture and the subcutaneous tissues with 2-0 Dexon suture in a buried interrupted fashion. The skin of all the incisions were then closed with skin jonatan. The leg was then cleaned and dried and a sterile dressing composed of Xeroform, 4 x 4's, ABD pad and foam tape was applied. The patient was then taken off the fracture table. She was brought out of general anesthesia and transferred to the recovery room in stable condition. The patient tolerated the procedure well with no complications. All needle and sponge counts were correct at the end of the operation. I attest to the content of the Intraoperative Record and any orders documented therein. Any exception s are noted below.
[2017-09-03] MEDS: SIMVASTATIN 20 MG TAB PO SCH (21:08)
[2017-09-03] MEDS: SITAGLIPTIN 100 MG TAB PO SCH (21:11)
[2017-09-03] MEDS: DOCUSATE SODIUM/SENNA 50/8.6MG TAB PO SCH (21:11)
[2017-09-03] MEDS ORDERED: LACTATED RINGER'S 1000ML 1,000 ML IV SCH (23:00)
[2017-09-04] VITALS (8 sets, daily range): BP systolic 102–127; BP diastolic 59–72; PULSE 57–64; TEMP 36.5–37; O2SAT 91–94
[2017-09-04] MEDS ORDERED: CEFAZOLIN IV 1,000 MG in DEXTROSE 5% 50ML 50 ML IV SCH ×2
[2017-09-04] MEDS: CEFAZOLIN IV 1,000 MG in SYRINGE 0 ML IV SCH ×2 (00:37→07:37)
[2017-09-04 07:08] LABS: HEMATOCRIT 27.2 % (37-47); MEAN CORPUSCULAR HEMOGLOBIN 30.1 pg (25-34); MEAN CORPUSCULAR HGB CONC 33.1 g/dl (32-36); MEAN PLATELET VOLUME 9.9 fL (7.4-10.4); PLATELET COUNT 160 K/uL (130-400); RED BLOOD COUNT 2.99 M/uL (4.2-5.4); WHITE BLOOD COUNT 11.67 K/uL (4.8-10.8)
[2017-09-04 07:19] LABS: CALCIUM 8.2 mg/dl (8.5-10.1); CREATININE 1.01 mg/dl (0.60-1.20)
[2017-09-04] MEDS: DICLOFENAC SOD EC 75 MG TABCR PO SCH ×2 (09:00→21:26)
[2017-09-04] MEDS: ASPIRIN 81 MG ECTAB PO SCH (09:02)
[2017-09-04] MEDS: CLOPIDOGREL BISULFATE 75 MG TAB PO SCH (09:03)
[2017-09-04] MEDS: AMLODIPINE BESYLATE 5 MG TAB PO SCH (09:05)
[2017-09-04] MEDS: METOPROLOL TARTRATE 50 MG TAB PO SCH ×3 (09:07→21:26)
[2017-09-04] MEDS: LISINOPRIL/HCTZ 20/25MG TAB PO SCH (09:07)
[2017-09-04] MEDS: INSULIN ASPART 100 UNITS/ML 3 ML PEN SC SCH ×4 (09:13→21:27)
--- NOTE | 2017-09-04 09:14 | PROGRESS NOTE ---
DATE: 09/04/2017 SUBJECTIVE: A 67-year-old white female postop day 1 from IM nailing of a right comminuted intertrochanteric fracture. She is doing well. In bed, she is not really having any significant pain. No chest pain or shortness of breath. Not feeling dizzy or lightheaded. No other complaints. OBJECTIVE: VITAL SIGNS: Temperature 36.8. Vital signs stable. GENERAL: A pleasant, middle-aged female. Lying in bed, looks pretty comfortable. EXTREMITIES: Examination of the right hip and leg reveals the leg to be well aligned. Dressing is clean, dry and intact. She can dorsiflex and plantarflex her foot appropriately. Thigh is soft and supple. LABORATORY DATA: Hemoglobin 9.0. Hematocrit 27.2. White cell count 11.67. Electrolytes are stable. ASSESSMENT: A 67-year-old white female, diabetic, postop day 1 from intramedullary nailing of the right intertrochanteric fracture. She is doing pretty well. Pain is controlled. She is neurologically intact. PLAN: 1. DVT prophylaxis including thigh-high TEDs, SCDs, and back on her Plavix 24 hours postop. 2. PT/OT. She can weightbear as tolerated, right lower extremity. 3. Pain control, doing pretty well with current pain regimen. 4. Medical management as per the medicine service. 5. Disposition: She really wants to go home. I am not sure what kind of help she has at home. Will get [employer] social media and crm involved. She might benefit from a rehab stay.
[2017-09-04] MEDS: ACETAMINOPHEN 325 MG TAB PO PRN (10:40)
--- NOTE | 2017-09-04 13:27 | Progress Note ---
Subjective Date of Service: Sep 04, 2017. Subjective Pt evaluation today including: conversation w/ patient, physical exam, chart review, lab review, review of studies, review of inpatient medication list Depressed effect Reports pain at surgical site but controlled Pt not very verbal on discussion No other concerns expressed Problem List Medical Problems: (1) Closed right hip fracture Status: Acute (2) Encounter related to worker's compensation claim Status: Acute Review of Systems Constitutional: No fever, No chills, No sweats, No weakness Eyes: No worsening of vision, No eye pain, No redness, No discharge Respiratory: No cough, No sputum, No wheezing, No shortness of breath, No dyspnea on exertion Cardiac: No chest pain, No orthopnea, No PND, No edema Abdomen: No pain, No nausea, No vomiting, No diarrhea Musculoskeletal: + joint pain, No muscle pain, No swelling, No calf pain Female : No dysuria, No urinary frequency, No hematuria, No incontinence Neurologic: No memory loss, No paralysis, No weakness, No numbness/tingling Psychiatric: + depression symptoms, + anxiety, No anhedonism, No insomnia Heme: No abnormal bleeding/bruising, No clotting problems Endo: No fatigue, No excessive thirst Skin: No rash, No itch Objective Vital Signs Date Time Temp Pulse Resp B/P (MAP) Pulse Ox O2 Delivery O2 Flow Rate FiO2 09/04/17 13:11 57 122/59 (80) 09/04/17 09:13 64 115/68 (84) 09/04/17 07:45 Room Air 09/04/17 07:30 36.8 64 16 125/71 (89) 91 Room Air 09/04/17 03:47 37.0 63 16 102/62 (75) 93 Room Air 09/04/17 00:15 92 Nasal Cannula 1.0 09/03/17 23:13 37.0 65 16 108/70 (83) 98 Nasal Cannula 2.0 09/03/17 22:30 36.6 65 16 119/75 (90) 98 Nasal Cannula 2.0 09/03/17 21:30 36.6 63 16 120/73 (89) 98 Nasal Cannula 2.0 09/03/17 21:05 61 131/79 (96) 09/03/17 20:30 36.4 58 16 130/72 (91) 98 Nasal Cannula 2.0 09/03/17 20:00 36.5 57 16 132/70 (90) 98 Nasal Cannula 2.0 09/03/17 19:30 Nasal Cannula 2.0 09/03/17 19:30 Nasal Cannula 2.0 09/03/17 19:05 36.4 53 19 122/75 98 Nasal Cannula 2 09/03/17 18:55 53 16 131/74 98 Nasal Cannula 2 09/03/17 18:45 58 18 121/71 99 Oxymask 10 09/03/17 18:35 64 26 110/91 99 Oxymask 10 09/03/17 18:26 36.0 66 16 128/90 100 Oxymask 10 09/03/17 15:33 37 65 16 154/87 (109) 95 Room Air Physical Exam General Appearance: WD/WN, + mild distress Eyes: normal inspection, PERRL, EOMI, sclerae normal Neck: supple, no adenopathy, thyroid normal, no JVD Respiratory/Chest: chest non-tender, lungs clear, normal breath sounds, no respiratory distress Cardiovascular: regular rate, rhythm, no edema, no gallop, no JVD Abdomen: normal bowel sounds, non tender, soft, no organomegaly Extremities: normal range of motion, non-tender, normal inspection, no pedal edema Neurologic/Psychiatric: no motor/sensory deficits, alert, oriented x 3, + depressed affect Laboratory Results Last 24 Hours Test 09/03/17 16:41 09/03/17 18:31 09/03/17 21:02 09/04/17 05:59 Bedside Glucose 140 mg/dl 175 mg/dl 240 mg/dl White Blood Count 11.67 K/uL Red Blood Count 2.99 M/uL Hemoglobin 9.0 g/dL Hematocrit 27.2 % Mean Corpuscular Volume 91.0 fL Mean Corpuscular Hemoglobin 30.1 pg Mean Corpuscular Hemoglobin Concent 33.1 g/dl RDW Standard Deviation 43.1 fL RDW Coefficient of Variation 13.1 % Platelet Count 160 K/uL Mean Platelet Volume 9.9 fL Sodium Level 135 mmol/L Potassium Level 4.0 mmol/L Chloride Level 101 mmol/L Carbon Dioxide Level 27 mmol/L Anion Gap 7.0 mmol/L Blood Urea Nitrogen 25 mg/dl Creatinine 1.01 mg/dl Est Creatinine Clear Calc Drug Dose 55.5 ml/min Estimated GFR () 66.7 Estimated GFR (Non- 57.6 BUN/Creatinine Ratio 25.0 Random Glucose 196 mg/dl Calcium Level 8.2 mg/dl Test 09/04/17 08:05 Bedside Glucose 193 mg/dl Assessment and Plan 67 y/o F who was admitted on 09/02 with R hip fracture s/p mechanical fall at work. R hip fracture: s/p mechanical fall, IM nail/screw placed Resume diet Ok to cont plavix Appreciate ortho recs PT consulted, rec rehab at this time HTN: stable, continue home meds DM: on PO generally, will hold and use SSI until taking reliable PO post-op A1c 8 CVA: hx in 2009 without deficits On asp/plavix, last dose was PM 09/01 Will hold Other: Full code
[2017-09-04] MEDS: DOCUSATE SODIUM/SENNA 50/8.6MG TAB PO SCH (21:26)
[2017-09-04] MEDS: SIMVASTATIN 20 MG TAB PO SCH (21:26)
[2017-09-04] MEDS: SITAGLIPTIN 100 MG TAB PO SCH (21:26)
--- NOTE | 2017-09-04 21:57 | Discharge Instructions ---
Discharge Instructions Date of Service Sep 04, 2017. Admission Reason for Admission: Closed Right Hip Fracture Discharge Discharge Diagnosis / Problem: IM Nailing of Right Hip Fracture Discharge Goals Goal(s): Decrease discomfort, Improve function, Increase independence, Improve disease control, Therapeutic intervention Activity Recommendations Activity Level: Assistance Required Therapies: Physical Therapy, Occupational Therapy Weightbearing Status: Right weightbearing . Additional Information Patient informed of condition: Yes Advance Directives: No DNR: No Level of Care: Acute Rehab Communicable Disease: No Prognosis: Improving Pride Catheter: No Current Hospital Diet Patient's current hospital diet: Diabetes Type 2 Diet Discharge Diet Recommended Diet: Diabetes Type 2 Diet Procedures Procedures Performed: Intramedullary Froilan Right Intertrochanteric fracture Pending Studies Studies pending at discharge: no Laboratory Results Hemoglobin A1c Test 09/03/17 06:22 Range/Units Estimated Average Glucose 183 mg/dl Hemoglobin A1c 8.0 H 4.5-5.6 % Medical Emergencies . Who to Call and When: Medical Emergencies: If at any time you feel your situation is an emergency, please call 911 immediately. . Non-Emergent Contact Non-Emergency issues call your: Surgeon . . "Provider Documentation" section prepared by Francisco Love. . Core Measure Problem Core Measures: None
[2017-09-05 00:04] VITALS: BP 109/63; PULSE 53; TEMP 37.1; O2SAT 93
[2017-09-05] MEDS: POLYETHYLENE (MIRALAX) 17 GM PACK PO SCH ×2 (05:28→13:04)
[2017-09-05 07:25] VITALS: BP 124/78; PULSE 70; TEMP 36.7; O2SAT 93
--- NOTE | 2017-09-05 07:59 | PROGRESS NOTE ---
DATE: 09/05/2017 SUBJECTIVE: A 67-year-old white female postop day #2 from an IM nailing of right intertrochanteric fracture. She is doing quite well this morning. She is much more optimistic as she got to the bathroom with a walker reasonably well. Pain is controlled. Denies any chest pain or shortness of breath. OBJECTIVE: VITAL SIGNS: Temperature 36.7. Vital signs stable. GENERAL: Physical examination reveals a pleasant, middle-aged female. She is sitting up at her bedside chair and looks pretty comfortable. EXTREMITIES: Examination of right hip and leg reveals incision to be clean, dry and intact. Thigh is soft and supple. No significant drainage. She is neurologically intact. ASSESSMENT: A 67-year-old white female diabetic, postop day #2 from an IM nailing of a right intertrochanteric fracture, doing pretty well. Pain seems to be pretty well controlled. I do believe she has decided to go to rehabilitation. PLAN: 1. DVT prophylaxis including thigh-high TEDs, SCDs, and back on her Plavix. I would stick to that for DVT prophylaxis. 2. PT/OT. She can weightbear as tolerated, right leg. 3. Pain control. Doing pretty well with current pain regimen. 4. Disposition: She is orthopedically acceptable for discharge any time. I believe she is accepted as she has decided to go to [facility] for a brief rehab stay and I think that is appropriate. I need to see her back 2 weeks out from surgery. Any orthopedic questions can be directed to me at [phone]. [facility]
[2017-09-05] MEDS: ASPIRIN 81 MG ECTAB PO SCH (08:39)
[2017-09-05] MEDS: CLOPIDOGREL BISULFATE 75 MG TAB PO SCH (08:39)
[2017-09-05] MEDS: DICLOFENAC SOD EC 75 MG TABCR PO SCH (08:40)
[2017-09-05 08:42] VITALS: BP 108/65; PULSE 72
[2017-09-05] MEDS: METOPROLOL TARTRATE 50 MG TAB PO SCH ×2 (08:43→13:45)
[2017-09-05] MEDS: AMLODIPINE BESYLATE 5 MG TAB PO SCH (08:43)
[2017-09-05] MEDS: LISINOPRIL/HCTZ 20/25MG TAB PO SCH (08:43)
[2017-09-05] MEDS: INSULIN ASPART 100 UNITS/ML 3 ML PEN SC SCH ×2 (08:48→13:04)
[2017-09-05] MEDS: ACETAMINOPHEN 325 MG TAB PO PRN (08:52)
[2017-09-05 12:54] VITALS: BP 108/65; PULSE 72; TEMP 36.7; O2SAT 93
--- NOTE | 2017-09-05 13:06 | Discharge Summary ---
Discharge Summary Date of Service Sep 05, 2017. Discharge Summary Admission Date: Sep 02, 2017 at 19:09 Discharge Date: Sep 05, 2017 Discharge Disposition: Rehab ([facility]) Principal Diagnosis: right hip fracture Immunizations: Have You Had Influenza Vaccine: Unknown History of Tetanus Vaccine?: Unknown History of Pneumococcal: Yes Pneumococcal Date: Apr 27, 2010 History of Hepatitis B Vaccine: Unknown Consultations: Orthopedic surgery Medication Reconciliation Continued Medications: Amlodipine (Norvasc) 10 Mg Tab 10 MG PO DAILY, TAB Aspirin (Aspirin 81) 81 Mg Tab 81 MG PO DAILY Clopidogrel (Plavix) 75 Mg Tab 75 MG PO DAILY, TAB Glyburide (Glyburide) 5 Mg Tab 5 MG PO BID Lisinopril/Hctz (Prinzide 20-25MG) Tab 1 TAB PO DAILY, 0 Refills Metformin Hcl (Fortamet) 1,000 Mg Tab 1000 MG PO BID Metoprolol Tartrate (Lopressor) (Lopressor) 100 Mg Tab 150 MG PO TID, TAB Simvastatin (Zocor) 20 Mg Tab 20 MG PO QPM, TAB Sitagliptin (Januvia) 100 Mg Tab 100 MG PO HS, TAB Discontinued Medications: Diclofenac (Voltaren) 75 Mg Tabcr 75 MG PO BID, TAB WITH FOOD Discharge Exam Review of Systems: Constitutional: No fever, No chills, No sweats, No weakness ENT: No hearing loss, No unusual epistaxis, No nasal symptoms, No sore throat Respiratory: No cough, No sputum, No wheezing, No shortness of breath Cardiovascular: No chest pain, No orthopnea, No PND, No edema Abdomen: No pain, No nausea, No vomiting, No diarrhea Musculoskeletal: No joint pain, No muscle pain, No swelling, No calf pain Genitourinary - Female: No dysuria, No urinary frequency, No urinary urgency , No urinary incontinence Neurologic: No memory loss, No paralysis, No weakness, No numbness/tingling Psychiatric: No depression symptoms, No anhedonism, No anxiety, No insomnia Integumentary: No rash, No itch Physical Exam: General Appearance: WD/WN, no apparent distress Eyes: normal inspection, PERRL, EOMI, sclerae normal Neck: supple, no adenopathy, thyroid normal, no JVD Respiratory/Chest: chest non-tender, lungs clear, normal breath sounds, no respiratory distress Cardiovascular: regular rate, rhythm, no edema, no gallop, no murmur Abdomen / GI: normal bowel sounds, non tender, soft, no organomegaly Extremities: normal inspection, no calf tenderness, normal capillary refill , no pedal edema Neurologic/Psychiatric: no motor/sensory deficits, alert, normal mood/affect , oriented x 3 Skin: normal color, warm/dry, no rash Lymphatic: no adenopathy Hospital Course 67 y/o F who was admitted on 09/02 with R hip fracture s/p mechanical fall at work. R hip fracture: s/p mechanical fall, IM nail/screw placed Pain controlled Ok to cont plavix for DVT ppx Appreciate ortho recs DC to [facility] HTN: stable, continue home meds DM: on PO generally, will hold and use SSI until taking reliable PO post-op A1c 8 CVA: hx in 2009 without deficits On asp/plavix, last dose was PM 12/12 Will hold Other: Full code Total Time Spent: Greater than 30 minutes This includes examination of the patient, discharge planning, medication reconciliation, and communication with other providers. Discharge Instructions Please refer to the electronic Patient Visit Report (Discharge Instructions) for additional information. Additional Copies To Armaan Mo M.D.
[2017-09-05 13:44] VITALS: BP 123/80; PULSE 74
== END 2017-09-05 14:01 | DRG 482 ==
LOC: EDBD 15:38 → C.EDB 15:40 → C.MSW 19:09 → ENRESERV 19:15
PROVIDERS: ADMIT Family Medicine; ATTEND Family Medicine
PROC: 0QS606Z Reposition Right Upper Femur with Intramedullary Internal Fixation Device, Open Approach (ICD-10-PCS; principal; 2017-09-03 10:00)
DX: S72.141A Displaced intertrochanteric fracture of right femur, initial encounter for closed fracture (principal); E11.9 Type 2 diabetes mellitus without complications; I10 Essential (primary) hypertension; Z79.02 Long term (current) use of antithrombotics/antiplatelets; Z79.82 Long term (current) use of aspirin; Z79.84 Long term (current) use of oral hypoglycemic drugs; Z79.899 Other long term (current) drug therapy; W03.XXXA Other fall on same level due to collision with another person, initial encounter; Y92.512 Supermarket, store or market as the place of occurrence of the external cause; Y99.0 Civilian activity done for income or pay; Z86.73 Personal history of transient ischemic attack (TIA), and cerebral infarction without residual deficits

== ENCOUNTER 2025-03-28 12:09 | Inpatient (IN) ==
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
[2025-03-28 13:08] LABS: Hematocrit (blood only) 40.6 % (37.0-47.0); Hemoglobin 12.3 g/dl (12.0-16.0); Mean Corpuscular Hemoglobin 25.0 pg (25.0-34.0); Mean Corpuscular Volume 82.5 fL (80.0-100.0); Platelet Count 233 K/uL (130-400); RDW Standard Deviation 48.4 fL (36.4-46.3); Red Blood Count 4.92 M/uL (4.20-5.40); White Blood Count 5.74 K/ul (4.8-10.8)
--- NOTE | 2025-03-28 13:16 | XRay Report ---
SINGLE VIEW CHEST CLINICAL HISTORY: Strokelike symptoms. FINDINGS: An AP, portable, upright chest radiograph is compared to study dated 09/02/2017. The heart is enlarged and noting atherosclerotic calcification of the thoracic aorta. The pulmonary vasculature is not congested. Chronic interstitial thickening is similar to previous. There is mild bibasilar sc arring/atelectasis. No airspace consolidation or large pleural effusion is identified. No pneumothora x is seen. The skeletal structures are osteopenic. The bony thorax is grossly intact. IMPRESSION: Cardiomegaly with no acute cardiopulmonary abnormality identified. ACT 112: Negative or not required by law. Electronically signed by: Marcos Paulino M.D. 03/28/2025 1:14 PM
[2025-03-28 13:26] LABS: Alanine Aminotransferase 4.0 U/L (7-52); Albumin Globulin Ratio 1.3 (0.9-2); Alkaline Phosphatase 60.0 U/L (34-104); Anion Gap 13.0 (3-11); Bilirubin,Total 0.7 mg/dl (0.2-1.0); Blood Urea Nitrogen 34.0 mg/dl (6-23); Calcium 9.9 mg/dl (8.6-10.3); Carbon Dioxide 25.0 mmol/L (21-32); Chloride 99.0 mmol/L (98-107); Creatinine Clr Calc Pharmacy 42.6 ml/min; Globulin 3.6 gm/dl (2.5-4.0); Glucose 155.0 mg/dl (70-99(Fasting)); Magnesium 2.1 mg/dl (1.7-2.4); Potassium 3.8 mmol/L (3.5-5.1); Sodium 137.0 mmol/L (136-145); Total Protein 8.1 gm/dl (6.0-8.3)
[2025-03-28 13:38] LABS: INR 0.9 (0.9-1.1); Partial Thromboplastin Time 25 Seconds (21-31); Prothrombin Time 9.8 Seconds (9.0-12.0)
[2025-03-28] MEDS: OPTIRAY 320 125ml IV ONE (13:40)
--- NOTE | 2025-03-28 14:04 | CT Scan Report ---
CT head/brain wo con CLINICAL HISTORY: 74 years-old Female with neuro deficit, acute stroke suspected. Acute stroke like symptoms TECHNIQUE: Multiple axial CT images of the head were obtained without contrast. A dose lowering tech nique was utilized adhering to the principles of ALARA. COMPARISON: CTA head of same day, head CT 11/15/2019 FINDINGS: No acute intracranial hemorrhage, midline shift, intra-axial mass, hydrocephalus, or abnormal extra-a xial collection. Involutional changes with chronic microvascular disease. 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 Age-indeterminate 2.4 cm hypodense focu s of the left occipital lobe on image 15 series 2. Subcentimeter left cerebellar lacunar infarct on i mage 10 series 2 is also new. 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 The calvarium is intact. The paranasal sinuses, mastoid air cells, and middle ear cavities are clear . IMPRESSION: 1. Age-indeterminate 2 cm left occipital infarct is new from 11/15/2019. 2. Age indeterminate subcentimeter left cerebellar lacunar infarct, also new from prior. 3. Please refer to the CTA head of same day for additional findings. 4. Chronic findings as above. ACT 112: Negative or not required by law. The above report was generated using voice recognition software. It may contain grammatical, syntax o r spelling errors. Electronically signed by: aJy Riley M.D. 03/28/2025 2:02 PM
--- NOTE | 2025-03-28 14:08 | CT Scan Report ---
CTA ANGIOGRAPHY OF THE HEAD CLINICAL HISTORY: neuro deficit, acute stroke suspected COMPARISON STUDY: CTA of the head January 07, 2019. Head CT November 15, 2019. TECHNIQUE: Helical axial images of the head were obtained following uneventful intravenous administr ation of 120 cc of Optiray. Sagittal and coronal reconstructions were viewed as well as maximal inten sity projections on an independent 3-D workstation. Automated exposure control was utilized for the study. A dose lowering technique was utilized adhering to the principles of ALARA. FINDINGS: Please note that the head CT will be reported separately. A subacute to acute infarct withi n left occipital lobe is better depicted on that examination. There is no acute intracranial hemorrha ge. Ventricular system is stable. Basal cisterns are patent. There are no extraaxial collections. A 1 .5 cm enhancing extra-axial lesion within the right quadrigeminal plate cistern is unchanged since CT of January 07, 2019. This is suggestive of a meningioma. There is moderate calcified atherosclerotic p laque within the bilateral cavernous carotids which results in mild stenosis. The bilateral M1, M2, A 1 and A2 segments are patent. An occluder device within the previously described basilar tip aneurysm is noted. There is no opacification of the aneurysm. There are stents within the proximal right post erior cerebral artery and the basilar artery. Stent patency is difficult to assess given small vessel size however these vessels appear patent. There is severe stenosis of the right P2 segment. There is severe stenosis at the origin of the left posterior cerebral artery on image 139. No large vessel oc clusion is identified. No additional aneurysms are identified. IMPRESSION: 1. 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 No opacification of the aneurysm. Stent patency within the distal basilar and right posterior cerebral arteries are difficult to assess given small vessel size but appear patent. 2. 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 Severe stenosis of the right P2 segment. 3. No large vessel occlusion. No additional intracranial aneurysms. 4. Subacute to acute left occipital lobe infarct better depicted on the head CT will be reported sepa rately. 5. No change in a suspected 1.5 cm right quadrigeminal plate cistern meningioma. ACT 112: Negative or not required by law. Electronically signed by: Arturo Parham M.D. 03/28/2025 2:05 PM
--- NOTE | 2025-03-28 14:09 | CT Scan Report ---
CT ANGIOGRAM OF THE NECK CLINICAL HISTORY: Neurological deficit. Stroke like symptoms. COMPARISON STUDY: CT angiogram of the neck dated 01/07/2019. TECHNIQUE: Following the IV administration of 120 of Optiray 320, CT angiogram of the neck was perfor med from the aortic arch to the skull base. Images are reviewed in the axial, sagittal, and coronal p lanes. 3-D MIPS images are created and assessed. IV contrast was administered without complication. A ll measurements were calculated based on NASCET criteria. A dose lowering technique was utilized adh ering to the principles of ALARA. CT DOSE: 1055.16 mGy.cm FINDINGS: Thoracic aorta: There is atherosclerotic calcification of the thoracic aorta. Visualized portions of the thoracic aorta are normal in caliber. The aortic arch demonstrates bovine variant anatomy. Right carotid arterial system: The right common carotid artery is widely patent including atheroscler otic plaque and irregularity. There is advanced atherosclerotic plaque in the carotid bulb with great er than 75% stenosis of the proximal right internal carotid artery seen on axial image #183. The mid- distal portions of the right internal carotid artery widely patent, as is the left external carotid a rtery. Left carotid arterial system: The left common carotid artery is widely patent, as is the left interna l carotid artery. There is mild to moderate stenosis at origin of the left external carotid artery. C alcified plaque is seen in the carotid bulb. Vertebral arteries: Widely patent bilaterally noting left-sided dominance. Subclavian arteries: Widely patent bilaterally. Intracranial vasculature: The visualized intracranial vessels at the skull base are patent. The left vertebral artery is dominant and the right vertebral artery terminates as the PICA. Jugular veins: Widely patent bilaterally. Brain parenchyma: A 1.6 cm meningioma is again seen along the right quadrigeminal plate cistern. The visualized brain parenchyma the skull base is otherwise normal as imaged. See report of today's brain imaging for detailed findings. Upper chest: Partially visualized upper lobe lung parenchyma appears clear. Calcified mediastinal lym ph nodes are similar to previous. Soft tissues: The visualized pharyngeal soft tissues are normal in appearance noting angiographic pha se technique. The oropharyngeal airway appears widely patent. The thyroid gland is heterogeneous. The salivary glands are normal in appearance. No cervical lymphadenopathy is seen. Skeletal structures: The skeletal structures are osteopenic. The visualized calvarium at the skull ba se appears intact. The imaged cervical spine is maintained noting multilevel spondylosis. Postsurgica l change is noted in the mandible. Sinuses and mastoids: The visualized paranasal sinuses are clear. The mastoid air cells are well pneu matized. Cerumen is noted in the external auditory canals. IMPRESSION: 1. There is focal high-grade stenosis of the proximal right internal carotid artery (greater than 75% ). This has worsened as compared to 01/07/2019. 2. The remaining neck vessels are patent. 3. A 1.6 cm meningioma is again seen along the right quadrigeminal plate cistern. 4. Additional findings as above. ACT 112: Negative or not required by law. Electronically signed by: Marcos Paulino M.D. 03/28/2025 2:07 PM
[2025-03-28] MEDS: CLOPIDOGREL BISULFATE 300 MG TAB PO STA (15:10)
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
--- NOTE | 2025-03-28 18:14 | Electrocardiogram Report ---
Test Reason : Blood Pressure : */* mmHG Vent. Rate : 78 BPM Atrial Rate : 78 BPM P-R Int : 130 ms QRS Dur : 110 ms QT Int : 416 ms P-R-T Axes : * -29 106 degrees QTcB Int : 474 ms Normal sinus rhythm Moderate voltage criteria for LVH, may be normal variant Possible Lateral infarct , age undetermined Abnormal ECG When compared with ECG of 01-Dec-2019 08:26, Borderline criteria for Lateral infarct are now Present Confirmed by Lawson Riggs ([id number]) on 03/28/2025 6:13:33 PM Referred By: REFERRED SELF Confirmed By: Lawson Riggs
[2025-03-28] MEDS ORDERED: CARBOHYDRATES FOR HYPOGLYCEMIA PO PRN (18:48)
[2025-03-28] MEDS ORDERED: GLUCAGON FOR INJ 1 MG VIAL SQ PRN (18:48)
[2025-03-28] MEDS ORDERED: GLUCOSE 10 TAB/TUBE PO PRN (18:48)
[2025-03-28] MEDS ORDERED: PHARMACIST DISCHARGE MED REC CONSULT PRN (18:48)
[2025-03-28] MEDS ORDERED: GLUCOSE 40% GEL 15 GM TUBE PO PRN (18:48)
[2025-03-28] MEDS ORDERED: PHARMACY GLYCEMIC MGMT CONSULT PRN (18:48)
[2025-03-28] MEDS ORDERED: DEXTROSE 50% 50 ML SYRINGE IV PRN (18:48)
[2025-03-28] MEDS ORDERED: POLYETHYLENE (MIRALAX) 17 GM PACK PO PRN (18:48)
[2025-03-28] MEDS ORDERED: ONDANSETRON INJ 2 MG/ML 2 ML VIAL IV PRN (18:48)
[2025-03-28] MEDS ORDERED: ACETAMINOPHEN 325 MG TAB PO PRN (18:48)
--- NOTE | 2025-03-28 19:14 | Magnetic Resonance Report ---
Clinical History: None provided Technique: Multiple T1 and T2-weighted magnetic resonance images were obtained of the brain without gadolinium contrast Comparison is made to the head CT dated 11/15/2019 Findings: There is an acute or subacute left occipital lobe infarct with restricted diffusion and increased T2 signal intensity. There is cerebral atrophy, within expected limits for the patient's age. There are focal and confluent areas of increased T2 signal intensity within the periventricular white matter of the cerebral hemispheres bilaterally. This is most likely due to chronic small vessel ischemic disease. No definite mass lesion is seen on this noncontrast study. There is no intracranial hemorrhage or other fluid collection. No midline shift or other form of herniation is seen. There is no hydrocephalus. There is prominence of the tip of the basilar artery, concerning for an aneurysm. The orbits and paranasal sinuses appear normal. The mastoid air cells appear clear. Impression: 1. Left occipital lobe infarct, acute or subacute 2. Cerebral atrophy and chronic small vessel ischemic disease 3. Apparent aneurysm of the tip of the basilar artery. CTA or MRA could be obtained for further evaluation ACT 112: Positive. There are findings on this exam that require communication between the performing entity and the patient following Patient Test Result Information Act ([place] ACT 112) guidelines. Electronically signed by Anson Lindquist 03-28-2025 7:13 PM
[2025-03-28] MEDS: SIMVASTATIN 20 MG TAB PO SCH (21:34)
[2025-03-28] MEDS: PROPRANOLOL HCL 10 MG TAB PO SCH (21:34)
[2025-03-28] MEDS: CARBIDOPA/LEVODOPA 25/100MG TAB PO SCH (21:34)
[2025-03-28] MEDS: INSULIN ASPART PER UNIT CHARGE SC SCH (21:34)
[2025-03-28] MEDS ORDERED: Nursing to Pharmacy Communication SCH (22:30)
[2025-03-28] MEDS: LANTUS PER UNIT CHARGE SQ SCH (22:45)
[2025-03-29 07:17] LABS: Hematocrit (blood only) 35.3 % (37.0-47.0); Hemoglobin 11.1 g/dl (12.0-16.0); Immature Granulocytes # (auto) 0.01 K/uL (0.01-0.20); Immature Granulocytes % (auto) 0.2 %; Mean Corpuscular Hemoglobin 25.8 pg (25.0-34.0); Mean Corpuscular Volume 82.1 fL (80.0-100.0); Platelet Count 200 K/uL (130-400); RDW Standard Deviation 48.1 fL (36.4-46.3); Red Blood Count 4.30 M/uL (4.20-5.40); White Blood Count 4.69 K/ul (4.8-10.8)
[2025-03-29 07:43] LABS: Anion Gap 9.0 (3-11); Blood Urea Nitrogen 27.0 mg/dl (6-23); Calcium 9.1 mg/dl (8.6-10.3); Carbon Dioxide 29.0 mmol/L (21-32); Chloride 101.0 mmol/L (98-107); Cholesterol 117.0 mg/dl (0-200); Creatinine Clr Calc Pharmacy 46.8 ml/min; Glucose 115.0 mg/dl (70-99(Fasting)); HDL Cholesterol 42.0 mg/dl; Potassium 3.6 mmol/L (3.5-5.1); Sodium 139.0 mmol/L (136-145); Triglycerides 195.0 mg/dl (0-150)
[2025-03-29 08:02] LABS: Hemoglobin A1C 7.5 % (4.5-5.6)
[2025-03-29] MEDS: ASPIRIN 81 MG ECTAB PO SCH (08:16)
[2025-03-29] MEDS: CYANOCOBALAMIN (B-12) 500 MCG TABLET PO SCH (08:16)
[2025-03-29] MEDS: INSULIN ASPART PER UNIT CHARGE SC SCH (08:30)
[2025-03-29 11:16] VITALS: BP 136/84; PULSE 78; RESP 18; TEMP 98.2; O2SAT 93
--- NOTE | 2025-03-29 11:40 | Pharmacy Report ---
Pharmacy Glycemic Short Note 2 - Date of Service March 29, 2025 - Glycemic Short BSG Results (Last 24 hours): 03/28/25 03/28/25 03/29/25 12:50 20:05 06:58 Glucose 155 H 115 H POC Glucose 106 H 03/29/25 03/29/25 07:12 11:14 Glucose POC Glucose 128 H 243 H OUTPATIENT ANTIDIABETIC REGIMEN: * Basaglar 2 units SQ HS * Humalog SSI (less than 20 units per day) * metformin 1000mg BIDM * glimepiride 1mg PO QAM * HbA1c 7.5% (03/29/25) ASSESSMENT: * Tammy is a 74 year old female presenting with a right-sided visual deficit found to have CVA with a history of type 2 diabetes mellitus. Pharmacy has been consulted to assist with glycemic management while inpatient. * Lantus initiated at home basal dose, fasting BSG this AM within normal limits, will continue for now and trend. * NovoLog initiated based on reported outpatient insulin usage, will tighten to a weight based stress of 2 due to holding of oral medications and bolus heavy outpatient regimen. Continue with looser goal range for now to prevent hypoglycemia. No bolus insulin given at this time, so unable to assess true needs. PLAN FOR INPATIENT GLYCEMIC CONTROL: * Hold outpatient oral diabetes medications * Basal insulin * Lantus 2 units SQ HS * Bolus insulin * NovoLog per scale ACHS or Q6hrs while NPO * Goal Range: Low 140 mg/dL - High 180 mg/dL * Correction Factor: 35 mg/dL/unit * Nutritional / Prandial insulin per carb ratio of 1 unit per 12 grams CHO consumed
[2025-03-29] MEDS: CALCIUM 600MG + VIT D 400 IU TAB PO SCH (11:56)
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
--- NOTE | 2025-03-29 15:44 | Pharmacy Report ---
- Date of Service March 29, 2025 - Pharmacy CVA/TIA Medication Review Medications to Prevent Stroke handout has been added to the patients discharge packet. Antiplatelet(s) * aspirin 81mg PO daily * clopidogrel 75mg PO daily * DAPT for at least 3 weeks then aspirin monotherapy per Neurology. Cholesterol * On simvastatin 20mg PO daily * High intensity statin deferred per Dr. Claire, due to LDL less than 90mg/dL already * Added fenofibrate 48mg PO daily for hypertriglyceridemia. DVT Prophylaxis * Patient to be discharged. Therapeutic Anticoagulation * No history of Afib/Aflutter noted Type 2 Diabetes * Patient has T2DM, but per Dr. Claire, a diabetes medication with proven CVD benefit will be deferred to their outpatient provider due to familiarity with risks/benefits of such therapies. "Medications to prevent stroke" handout has already been added to the patient's discharge packet, which instructs the patient to follow up with their outpatient provider to evaluate which diabetes medication with proven CVD benefit is best for them
[2025-03-29] MEDS: STROKE PATIENT DISCHARGE STA (16:46)
--- NOTE | 2025-03-31 10:07 | Pharmacy Report ---
Pharmacist Stroke Counseling - Date of Service March 31, 2025 - Scope: Pharmacy has been consulted to provide medication discharge counseling for this patient admitted with ischemic stroke as per the Pharmacist Discharge Counseling for Stroke Patients Protocol. - Medications on Discharge: Home Medications Medication Instructions Recorded Confirmed aspirin 81 mg tablet,delayed 81 mg PO QAM 11/15/19 03/28/25 release blood sugar diagnostic (ReliOn #10 ea 08/02/20 11/08/24 Prime Test Strips) carbidopa 25 mg-levodopa 100 mg 1 tab PO TID 07/07/22 03/28/25 tablet blood-glucose sensor (FreeStyle 04/19/24 11/08/24 Madhu 3 Sensor device) insulin lispro-aabc 100 unit/mL 0 unit subcut DAILY 04/19/24 03/28/25 subcutaneous pen (Lyumjev KwikPen U-100 Insulin) insulin glargine 100 unit/mL (3 2 unit subcut QPM 11/08/24 03/28/25 mL) subcutaneous pen (Basaglar KwikPen U-100 Insulin) propranolol 10 mg tablet 10 mg PO TID 11/08/24 03/28/25 calcium ER 600 mg (as carb,cit)-D3 2 tab PO DAILY 03/28/25 03/28/25 12.5 mcg (500 unit) tablet, ext.rel (Citracal-D3 Slow Release) cyanocobalamin (vitamin B-12) 1,000 mcg PO DAILY 03/28/25 03/28/25 1,000 mcg tablet simvastatin 20 mg tablet 20 mg PO QPM 03/28/25 03/28/25 New Rx's Medication Instructions Recorded empagliflozin 25 mg tablet 25 mg PO QAM #90 tabs 09/26/21 (Jardiance) amlodipine 10 mg tablet 10 mg PO QAM #90 tabs 09/30/21 metformin 1,000 mg tablet 1,000 mg PO BID #180 tabs 09/30/21 lisinopril 20 1 tab PO DAILY #90 tabs 12/31/22 mg-hydrochlorothiazide 25 mg tablet pen needle, diabetic 32 gauge x #300 ea 05/22/23" (BD Ultra-Fine Christine Pen Needle) glimepiride 1 mg tablet 1 mg PO QAM #90 tabs 03/27/25 clopidogrel 75 mg tablet (Plavix) 75 mg PO DAILY #21 tabs 03/29/25 fenofibrate nanocrystallized 48 mg 48 mg PO DAILY #30 tabs 03/29/25 tablet (Tricor) - Action: The above medications, specifically ones for stroke treatment/prophylaxis, have been reviewed in detail with the patient and/or patient member services representative(s) prior to discharge. This includes indication, common adverse reactions, drug interactions, and medication administration. Medication counseling has been employed using the teach-back method to ensure understanding. - Outcome: The patient and/or patient member services representative(s) have demonstrated understanding of the medications. Additional comments: * Patient confirmed that medications had been picked up from pharmacy and that she has appointment scheduled with PCP later this month * Patient to self-monitor for any new signs/symptoms of muscle toxicity with fenofibrate/simvastatin combination and will notify PCP if any issues * No barriers to medication compliance identified during phone conversation Thank you for allowing pharmacy to be involved in the care of this patient. Please call [phone] with any additional questions
== END 2025-03-29 16:48 | disposition home or self-care (01) | DRG 66 ==
LOC: ED 12:09 → SUATTDRO 16:13 → EDINP 16:13 → 2S 22:30